=== PATIENT | male | born 1940 | race Caucasian/White ===

== ENCOUNTER 2016-11-02 09:37 | Emergency (ER) | payer MEDICARE ==
[~2016-11-02] VITALS: Ht 175.3 cm; Wt 75.0 kg
[2016-11-02 09:46] VITALS: BP 181/91; PULSE 97; RESP 12; O2SAT 96
--- NOTE | 2016-11-02 09:50 | ED.REPORT ---
HPI-Trauma Minor / Fall Date of Service Nov 02, 2016 ED Provider: Jeff Hauser MD Pt is a 75 year old male on Coumadin presenting to the ED complaining of left shoulder pain onset after a ground level fall around 0300 this morning. He states that he stubbed his toe on a cabinet and tripped and fell onto his shoulder. Denies hx of shoulder dislocation. He denies hitting his head, LOC, SOB, fever, nausea, vomiting, or any other symptoms at this time. Nursing Notes Stated Complaint: FALL/ LEFT SHOULDER INJURY Chief Complaint: Extremity Trauma Nursing Notes Reviewed: Yes Allergies: Coded Allergies: No Known Allergies (Unverified , 11/02/16) Scheduled PRN Hydrocodone-Acetaminophen 5-325 mg (Hydrocodone-Acetaminophen 5-325 mg) 1 Each Tablet 1 TABLET PO Q4H PRN PRN For Pain General Time Seen by MD: 09:49 Chief Complaint Fall Hx Obtained From: Patient Arrived By: Walk-in Onset Occurred: 5 - 8 hours ago Symptom Duration: Since onset Caused by: Fall on ground Location: Shoulder left Quality: Painful Severity: Current: Mild Severity: Maximum: Moderate Recent Healthcare: No recent doctor visit, No recent hospitalization Similar Sx Previous: No Past Medical History Past Medical History On Coumadin Past Surgical History denies Smoking History Unknown if Ever Smoker Social History Other Social History: Ambulatory Status Independent Review of Systems Constitutional: Denies: Fever Respiratory: Denies: Shortness of breath Musculoskeletal: Reports: Joint pain (Left shoulder) Neurologic: Denies: Change LOC, Headache Complete sys rev & neg: except as marked. GI: Denies: Nausea, Vomiting Physical Exam Initial Vital Signs Vital Signs (First) Date Time Temp Pulse Resp B/P Pulse Ox O2 Delivery O2 Flow Rate FiO2 11/02/16 09:46 36.7 97 12 181/91 96 Room Air Initial VS: Reviewed ENT: Mucous membranes moist, Conjunctiva normal, No scleral icterus Respiratory: Breath sounds normal, Clear to auscultation, No respiratory distress Abdomen / GI: Soft, Non-tender, No guarding, No rebound, No distention Skin: Warm, Dry, No cyanosis Neurologic: Alert, Oriented, Nonfocal Psychiatric: Mood/affect normal, Behavior normal, Normal thought content General/Constitutional: Awake, Alert, No acute distress No other signs of trauma. Neck: Atraumatic, Supple No midline cervical tenderness. Head / Eyes: Atraumatic, Normocephalic, PERRL, EOMI Cardiovascular: Heart rate NL, Regular rhythm Heart Sounds / Murmur: Positive: Systolic murmur present.. (Grade II) Upper Extremity / MS: Neurologic intact, Vascular intact Swelling and deformity to the left anterior shoulder. Good radial pulses. Interpretation & Diagnostics Lab Results Interpretation Result Diagram: 11/02/16 1057 11/02/16 1057 Test 11/02/16 10:57 White Blood Count 10.2th/mm3 (3.8-10.1) Red Blood Count 4.18mil/mm3 (4.40-5.80) Hemoglobin 13.4g/dL (13.8-17.2) Hematocrit 38.0% (41.0-50.0) Mean Corpuscular Volume 90.9fL (81-100) Mean Corpuscular Hemoglobin 32.1pg (27.0-35.0) Mean Corpuscular Hemoglobin Concent 35.3% (32.0-37.0) Red Cell Distribution Width 12.5% (12.3-15.4) Platelet Count 182bil/L (150-400) Neutrophils (%) (Auto) 81.0% (40-74) Lymphocytes (%) (Auto) 9.6% (14-46) Monocytes (%) (Auto) 8.8% (4-12) Eosinophils (%) (Auto) 0.3% (0-5) Basophils (%) (Auto) 0.1% (0-3) Prothrombin Time 11.6sec (8.1-12.5) Prothromb Time International Ratio 1.08ratio Sodium Level 132mEq/L (134-144) Potassium Level 4.6mEq/L (3.5-5.2) Chloride Level 96mEq/L (97-108) Carbon Dioxide Level 20mmol/L (18-29) Blood Urea Nitrogen 11mg/dL (8-27) Creatinine 0.64mg/dL (0.76-1.27) Estimat Glomerular Filtration Rate 130mL/min (>59) Glucose Level 128mg/dL (60-99) Calcium Level 9.3mg/dL (8.5-10.1) X-Ray Interpretation Xray Interpretation: IMPRESSION: Mildly impacted proximal metaphyseal (surgical neck) fracture of the left humerus. Dictated by: Tarun Limon M.D. on 11/02/2016 at 9:30 IMPRESSION: Slightly impacted and anterior displaced fracture of the left humeral neck. Dictated by: Temo Hernandez M.D. on 11/02/2016 at 11:42 X-Ray Ordered: Shoulder left Interpretation / Wet Read by: Interpret - Radiologist Re-Eval/Medical Decision Med Decision/Clinical Course Pt is a 75 year old male on Coumadin presenting to the ED complaining of left shoulder pain onset after a ground level fall around 0300 this morning. He states that he stubbed his toe on a cabinet and tripped and fell onto his shoulder. Denies hx of shoulder dislocation. He denies hitting his head, LOC, SOB, fever, nausea, vomiting, or any other symptoms at this time. Here in emergency department he is afebrile with stable vital signs and examination as above. The patient was given Townsend for pain. Left shoulder x ray: Mildly impacted proximal metaphyseal (surgical neck) fracture of the left humerus. Slightly impacted and anterior displaced fracture of the left humeral neck. Laboratory studies notable as below: Subtherapeutic INR CBC unremarkable BMP unremarkable At this time, there is no evidence of dislocation or neurovascular injury. Patient has some moderate swelling though no evidence of compartment syndrome. His INR is subtherapeutic and he will follow this up with his primary care physician/anticoagulation clinic. Patient was discussed with orthopedic surgeon regulatory submissions specialist. Recommended placement in a sling and they will follow-up with him in clinic. He will call this afternoon to schedule an appointment. Prior to discharge follow-up and return precautions were reviewed in detail with the patient who verbalized understanding and agreement with the plan. The patient was discharged in stable condition. He was given a prescription for Townsend for pain. Re-Evaluation/Progress : Time of Eval: 11:00 Patient Status: Condition improved Re-Evaluation/Progress Note: Discussedp radiology resutls and plan for discharge. Pt understands and agrees with plan. Counseled Regarding: Diagnosis, Lab results, Need for follow-up, When/why to return to ED Discharge & Departure Impression: Primary Impression: Fracture of neck of left humerus Encounter type: initial encounter Fracture type: closed Qualified Code: S42.212A - Unspecified displaced fracture of surgical neck of left humerus, initial encounter for closed fracture Additional Impressions: Anticoagulated on Coumadin Fall from ground level Disposition: Home Discharge Condition All VS Reviewed: Yes Condition: Improved Additional Instructions: Thank you for seeking care at the emergency room. You have a fracture of the left humerus. Our primary goal today in the ED was to evaluate you for any life-threatening conditions. Your evaluation was reassuring. Please call later today or first thing tomorrow morning to arrange for a follow- up appointment with the orthopedic surgeons. Please remain in sling at all time and take pain medications as directed. You should return to the ED immediately if you develop increased pain/swelling, numbness, tingling, weakness, discoloration of your fingertips, fevers, vomiting , cough, shortness of breath, chest pain, lightheadedness, weakness or any other concerning signs or symptoms. Thank you for letting us partake in your care today. Your INR today was subtherapeutic. Please follow up with this. Narcotic Pain Medicine You have been prescribed a narcotic for pain relief. These drugs are usually combined with acetaminophen (Tylenol#3, Percocet, Darvocet, Anexsia, Vicodin) or aspirin (Empirin#3, Percodan, Synalogs-DC) for increased effect. Narcotics act on the central nervous system to reduce pain; they also impair mental alertness and physical abilities. We advise you not to drink alcohol, drive a car, or operate dangerous equipment when you are taking these drugs. You can lessen stomach irritation from your medicine by taking it with meals or a full glass of water. Common side effects of narcotics are: Nausea and vomiting , heartburn, constipation, dizziness, sleepiness, and mood changes. If you have bothersome side effects or symptoms of an allergic reaction (itching, hives, rash), stop taking your medicine and call your doctor or the emergency room right away. Please keep your narcotic medicine well out of the reach of children. Referrals: Sonny Márquez MD Attestation Portions of this note were transcribed by Gladys Jovel. I, Dr. Hauser personally performed the history, physical exam and medical decision-making; I reviewed and confirmed the accuracy of the information in the transcribed note. Signed by: Alyx Pulido, 11/02/2016. copies to: Sonny Márquez MD, Beck O MD Nov 02, 2016 09:50 GALDYS JOVEL Nov 02, 2016 10:02
--- NOTE | 2016-11-02 10:34 | DRSVH ---
PROCEDURE: X-RAY LEFT SHOULDER, MINIMUM TWO VIEWS ([id number]) INDICATIONS: L SHOULDER PAIN TECHNIQUE: 3 views of the shoulder were acquired. COMPARISON: None. FINDINGS: Bones: The bone mineralization of the osseous structures of the left shoulder is decreased in which d oes result in difficulty evaluating for fractures. There is suboptimal positioning of the left humer us, as well. There does appear to be a transverse fracture through the metaphysis of the proximal le ft humerus with mild impaction. No dislocation is evident. No suspicious osseous lesions are seen. There mild degenerative changes of the acromioclavicular joint. Soft tissues: No suspicious soft tissue calcifications. IMPRESSION: Mildly impacted proximal metaphyseal (surgical neck) fracture of the left humerus. Dictated by: Tarun Limon M.D. on 11/02/2016 at 9:30 Approved by: Tarun Limon M.D. on 11/02/2016 at 9:32
[2016-11-02 11:10] LABS: BASOPHILS % (AUTO) 0.1 % (0-3); EOSINOPHILS % (AUTO) 0.3 % (0-5); MONOCYTES % (AUTO) 8.8 % (4-12); Mean Corpuscular Hemoglobin 32.1 pg (27.0-35.0); Mean Corpuscular Volume 90.9 fL (81-100); Platelet Count 182 bil/L (150-400)
[2016-11-02 11:25] LABS: INR 1.08 ratio
[2016-11-02] MEDS ORDERED: HYDR-4003 PO (11:31)
--- NOTE | 2016-11-02 11:46 | DRSVH ---
PROCEDURE: X-RAY LEFT SHOULDER, ONE VIEW ([id number]) INDICATIONS: axillary lateral view TECHNIQUE: 1 views of the shoulder were acquired. COMPARISON: [facility], CR, XR SHOULDER MIN 2VW LT, 11/02/2016, 10:11. FINDINGS: Bones: There is fracture in the left humeral neck with mild impaction anterior displacement of the d istal fracture fragment. Soft tissues: No suspicious soft tissue calcifications. IMPRESSION: Slightly impacted and anterior displaced fracture of the left humeral neck. Dictated by: Temo Hernandez M.D. on 11/02/2016 at 11:42 Approved by: Temo Hernandez M.D. on 11/02/2016 at 11:44
[2016-11-02 12:20] VITALS: BP 141/77; PULSE 76; RESP 12
== END 2016-11-02 12:21 | disposition home or self-care (01) ==
LOC: SED 09:37
DX: S42.212A Unspecified displaced fracture of surgical neck of left humerus, initial encounter for closed fracture (principal); W01.198A Fall on same level from slipping, tripping and stumbling with subsequent striking against other object, initial encounter; Y93.89 Activity, other specified; Y92.009 Unspecified place in unspecified non-institutional (private) residence as the place of occurrence of the external cause; Y99.8 Other external cause status; Z79.01 Long term (current) use of anticoagulants